=== PATIENT | female | born 1940 | race Caucasian/White ===

== ENCOUNTER 2021-12-06 10:00 | Outpatient (RCR) | payer MEDICARE, SELFPAY ==
--- NOTE | 2021-11-12 09:53 | HP.PTEVAL_ITS ---
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 Date of Evaluation: 11/12/21 Physical Therapist: Wen Marquez, PT, Cert MDT - Visit Plan Frequency: 2-3x /Week Duration: 4-6 Weeks Plan: CHECK AUTH AND RECORD VISITS APPROVED AND TIME FRAME. ALSO CHECK AUTH WITH POC. POSTURE CORRECTION/STRENGTHEING. RIGHT SHLD US, ROM, STRETCHING AND STRENGTHENING TO HELP MEET SET GOALS. - Subjective Work/Leisure: RETIRED. 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 DOES SOME BOWLING TOO. PILATES ONCE A WEEK WITH DAUGHTER. Present symptoms: WEAKNESS IN BOTH SHOULDERS. RIGHT SHLD PAIN. PATIENT DENIES NUMBNESS AND TINGLING. PATIENT REPORTS HAVING SOME PROBLEMS WITH HER NECK TOO AND IT IS MORE STIFFNESS THAN PAIN. Present since: YEARS. Pain Scale: Worst - 8/10 Least - 0/10. Currently: 0/10 AT REST, 5/10 REACHING. OVER-ALL PATIENT FEELS LIKE HER SHLD PAIN IS WORSENING. Commenced as a result of: NO APPARENT REASON. Worse: REACHING, TRYING TO PUT DISHES IN THE CUPBOARD, LIFTING, TRYING TO DO HAIR, SWEEPING THE FLOOR. Better: REST. Disturbed sleep: NO. Previous history/P revious treatment: UNREMARKABLE FOR NECK AND SHLDS. This episode: PRESCRIPTION GEL - HELPS. Dizziness: NO. Tinnitis: NO. Nausea: NO. Shortness of Breath: NO. Difficulty Swollowing: NO. Accidents: NO. Unexplained weight loss: NO. Imaging: R SHLD X-RAY - ARTHRITIS. PMH/Recent major surgery: PATIENT REPORTS SHE THINKS SHE TAKES BLOOD PRESSURE MEDICINE BUT THAT IS ALL. - Objective Sitting Posture/Standing Posture: POOR. FH. RS'S. Active Correction of posture: NE. Other Observations: THIS PATIENT AMBULATES INDEP'LY INTO PT WITHOUT ANY ASSISTIVE DEVICES OR LOB BUT WITH DECREASED CADANCE. INDEP TRANSFERS. 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 PATIENT IS RIGHT HAND DOMINANT. PEAK FORCE R SHLD FLEX 5, ABD 5.2, ER 4.6, IR 9.6. PEAK FORCE L SHLD FLEX 9.4, ABD 8.8, ER 7.8, IR 11. Sensory deficit: BELL UE LIGHT TOUCH SENSATION GROSSLY INTACT AND SYMMETRICAL. ROM deficit: RIGHT SHLD AROM IN SITTING: FLEX 150 DEG, ABD 165 DEG, EXT 70 DEG. SUPINE R SHLD IR/ER W/ 80 DEG ABD 54/45 DEG. PATIENT C/O ERP WITH R SHLD ROM TESTING ALL PLANES. LEFT SHLD AROM IN SITTING; FLEX 150 DEG, ABD 170 DEG, EXT 70 DEG. SUPINE L SHLD IR/ER W/80 DEG ABD 70/64 DEG. Reflexes: UNABLE TO ELICIT BELL UE DTR'S. Dural Signs: NEGATIVE. Cervical Mvmt Loss: Flex: MIN. Pro: NIL. Ext: MOD. Ret: ALEX. RSB: MOD. LSB: MOD. R Rot: MOD. L Rot: MOD. PATIENT DENIES INCREASED NECK OR SHLD PAIN WITH CERVICAL ROM TESTING ALL PLANES. Postural strength: POOR. Palpation: TENDERNESS WITH PALPATION OF RIGHT ANTERIOR AND LATERAL SHLD REGIONS. TREATMENT: NEUROMUSCULAR REEDUCATION - RETRAINING OF MVMT AND POSTURE FOR SITTING, LYING AND STANDING ACTIVITIES. - Balance/Special Test Scores Quick DASH Score: 36.3625 - Goals Goal 1:: DECREASE C/O RIGHT SHLD PAIN TO EASE ADL'S Goal Time Frame: 4-6 Weeks Goal 2:: IMPROVE PATIENTS ABILITY TO REACH WITH R UE TO EASE ADL'S Goal Time Frame: 4-6 Weeks Goal 3:: IMPROVE PATIENTS ABILITY TO LIFT, PUSH AND PULL WITH RIGHT UE TO EASE ADL'S. Goal Time Frame: 4-6 Weeks Goal 4:: PATIENT WILL BE INDEP WITH A HEP FOR CONTINUED IMPROVEMENT ONCE FORMAL PHYSICAL THERAPY CONCLUDES. Goal Time Frame: 4-6 Weeks Goal 5:: IMPROVE QUICK DASH FUNCTIONAL SCREEN SCORE BY 5 POINTS. Goal Time Frame: 4-6 Weeks - Anticipated Interventions Patient/Client Instruction: Educate patient on: Condition, Plan of Care, Risk Factors For the Purpose of:: To improve self management Therapeutic Exercise to Include: Strength training, Body mechanics, Postural training, Flexibilty training, Neuromotor development, Active ROM, Scapular Strength/Stabilization For the Purpose of:: To decrease pain, To increase ROM, To improve muscle performance and motor function, To increase tolerance to activity/con dition/position, To improve ability of physical actions for home/community/work/leisure Cryotherapy (ice pack, ice massage): Yes Thermo therapy (hot pack): Yes Ultrasound (thermal/non thermal): Yes For the Purpose of:: To decrease pain, To improve nutrient delivery to tissue Thank you for the opportunity to evaluate your patient. For Medicare and Medicare HMO plans, please review the plan of care and approve it. It will need to be FAXED BACK to us at [phone] for Medicare purposes. For Medicare only, by signing this I certify the plan of care. Please let me know if there are questions or concerns regarding this plan of care. Physician Signature: Date:
--- NOTE | 2021-12-06 10:26 | HP.PTDCSUM ---
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 Discharge Date: Please see the following information for a summary of their discharge status. Subjective: Patient reports that she has no pain at all in the shoulder. She is back to all normal ADL's she has someone who does her cleaning for her. She feels comfortable with the exercises and wants to continue on her own. % Improvement: 95 Objective/Function: Sitting Posture/Standing Posture: good throughout in hard back chair. 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 PATIENT IS RIGHT HAND DOMINANT. PEAK FORCE R SHLD FLEX 20, ABD 10, ER 9, IR 14. Add: 24 Extn: 17 ROM deficit: RIGHT SHLD AROM IN SITTING: WFL in all planes of the right shoulder without pain. Palpation: not tender to touch Goal 1:: DECREASE C/O RIGHT SHLD PAIN TO EASE ADL'S Goal Progress: Goal Met Goal 2:: IMPROVE PATIENTS ABILITY TO REACH WITH R UE TO EASE ADL'S Goal Progress: Goal Met Goal 3:: IMPROVE PATIENTS ABILITY TO LIFT, PUSH AND PULL WITH RIGHT UE TO EASE ADL'S. Goal Progress: Goal Met Goal 4:: PATIENT WILL BE INDEP WITH A HEP FOR CONTINUED IMPROVEMENT ONCE FORMAL PHYSICAL THERAPY CONCLUDES. Goal Progress: Goal Met Goal 5:: IMPROVE QUICK DASH FUNCTIONAL SCREEN SCORE BY 5 POINTS. Goal Progress: Goal Met Plan: Discharge to I HEP- given today with handouts and bands for progression- pt reported she feels confident with this plan. Encouraged to call if questions. If there are questions or concerns regarding this patient's physical therapy, please feel free to call me at [phone]. Thank you for the referral of this patient. Sincerely, Aminta Houser, DPT Balance/Gait/Functional tests - Balance/Special Test Scores Quick DASH Score: [phone]
== END 2021-12-06 12:35 | disposition home or self-care (01) ==
LOC: PT 10:00
PROVIDERS: PCP Nurse Practitioner Primary Care
DX: M25.511 Pain in right shoulder (principal); G89.29 Other chronic pain; M19.011 Primary osteoarthritis, right shoulder; M12.811 Other specific arthropathies, not elsewhere classified, right shoulder
CPT/HCPCS: 97110; 97162; 97164; 97530

== ENCOUNTER → 2022-05-28 | Outpatient (CLI) | payer MEDICARE, SELFPAY ==
--- NOTE | 2022-05-28 11:07 | MRI_ITS ---
STUDY: MRI LUMBAR SPINE WITHOUT CONTRAST REASON FOR EXAM: Female, 81 years old. back pain, left leg pain TECHNIQUE: Standardized fat and water weighted pulse sequences were obtained in the sagittal and axial planes. COMPARISON: None FINDINGS: T12-L1: 2 mm retrolisthesis of T12 on L1 with a mild bilobed disc protrusion produces moderate spinal stenosis, mild left neural foraminal stenosis and the moderate right neural foraminal stenosis. Normal lumbar lordosis. Moderate levoscoliosis centered at L2/L3 with left lateral subluxation of L2 on L3. Normal conus medullaris that terminates at the L1. L1-2: Moderate bilateral facet hypertrophy and mild ligament flavum hypertrophy. 2 mm retrolisthesis of L1 on L2 with a mild bilobed disc protrusion produces moderate spinal stenosis and moderate bilateral neural foraminal stenosis. L2-3: Moderate right facet hypertrophy and severe left facet hypertrophy with moderate ligament flavum hypertrophy. Moderate broad disc protrusion produces moderate spinal stenosis with moderate right neural foraminal stenosis and severe left neural foraminal stenosis. L3-4: Moderate right facet hypertrophy and severe left facet hypertrophy. Mild bilobed disc protrusion produces mild spinal stenosis with moderate right neural foraminal stenosis and severe left neural foraminal stenosis. L4-5: Moderate bilateral facet hypertrophy and mild ligament flavum hypertrophy. 2 mm of anterolisthesis of L4 and L5 with a mild broad disc protrusion produces mild spinal stenosis and the mild bilateral neural foraminal stenosis. L5-S1: Moderate bilateral facet hypertrophy. Moderate broad disc protrusion produces moderate spinal stenosis and moderate bilateral neural foraminal stenosis. Normal visualized sacral ala. Normal visualized paraspinous soft tissue structures. MRI/Spine Lumbar (Routine) IMPRESSION: Moderate levoscoliosis and degenerative disc disease as described above. Electronically Signed: Ammon Collazo MD at 23:44 EDT ,
== END | disposition home or self-care (01) ==
PROVIDERS: PCP Nurse Practitioner Primary Care; Visit Provider Orthopaedic Surgery
DX: M54.9 Dorsalgia, unspecified (principal)
CPT/HCPCS: 72148

== ENCOUNTER → 2022-07-23 | Outpatient (CLI) | payer MEDICARE, SELFPAY ==
--- NOTE | 2022-07-23 11:45 | RAD_ITS ---
EXAM: XR SPINE SCOLIOSIS, 2 OR 3 VIEWS CLINICAL INDICATION: L LUMBAR RADICULOPATHY TECHNIQUE: Frontal and lateral views of the spine. This report was created using [employer] report generation technology. COMPARISON: None. FINDINGS: VERTEBRAE: There is a levoscoliosis of 34 degrees centered at the L2 vertebral body with a dextroscoliosis of 33 degrees centered at the L3 vertebral body. Preserved vertebral body height. No fracture. No spondylolisthesis. No significant facet arthropathy. DISC SPACES: There are degenerative changes with disc space narrowing and osteophyte formation. RAD/Scoliosis 2 or 3 views IMPRESSION: Curvature of the lumbar spine. There are no acute osseous abnormalities. Electronically Signed: Arsen Miller MD at 23:17 EST ,
== END | disposition home or self-care (01) ==
LOC: RAD 11:43
PROVIDERS: PCP Nurse Practitioner Primary Care
DX: M54.16 Radiculopathy, lumbar region (principal); M43.8X6 Other specified deforming dorsopathies, lumbar region; M41.50 Other secondary scoliosis, site unspecified; M51.26 Other intervertebral disc displacement, lumbar region
CPT/HCPCS: 72082